=== PATIENT | female | born 1955 | race Hispanic/Latino ===

== ENCOUNTER 2017-02-10 07:10 | Outpatient (CLI) | payer BC ==
--- NOTE | 2017-02-10 10:56 | Mammography Report ---
BILATERAL DIGITAL SCREENING MAMMOGRAM with CAD: 02/10/17 07:10:00 CLINICAL: Routine screening. COMPARISON: 04/09/12 FINDINGS: There are bilateral scattered areas of fibroglandular density.No mass, architectural distortion or suspicious calcifications. IMPRESSION: No mammographic evidence of malignancy. BI-RADS CATEGORY: 1 -- Negative RECOMMENDATION: Routine mammographic screening in one year. COMMENT: Patient follow-up letters are generated by our [employer] application.
== END 2017-02-10 07:11 | disposition home or self-care (01) ==
LOC: MAMMO 07:10
PROVIDERS: ATTEND Internal Medicine
DX: Z12.31 Encounter for screening mammogram for malignant neoplasm of breast (principal)
CPT/HCPCS: 77067; G0202

== ENCOUNTER 2017-08-11 16:22 | Emergency (ER) | payer BC, OTHER ==
[2017-08-11 18:46] LABS: Basophils # (Auto) 0.1 K/mm3 (0.0-0.1); Basophils % (Auto) 1.4 % (0.0-1.8); Eosinophils # (Auto) 0.2 K/mm3 (0.0-0.4); Eosinophils % (Auto) 4.5 % (0.0-4.3); Hematocrit 28.6 % (30.3-42.9); Hemoglobin 8.8 gm/dl (10.1-14.3); Mean Corpuscular HGB Conc 31 % (30-34); Mean Corpuscular Volume 73 fl (79-97); Monocytes # (Auto) 0.4 K/mm3 (0.0-0.8); Platelet Count 242 K/mm3 (140-440); Red Blood Count 3.95 M/mm3 (3.65-5.03); Red Cell Distribution Width 17.5 % (13.2-15.2)
[2017-08-11 18:58] LABS: BUN/Creatinine Ratio 23; Blood Urea Nitrogen 14 mg/dL (7-17); Calcium 8.6 mg/dL (8.4-10.2); Hemolysis Index 2
[2017-08-11 19:18] LABS: Mean Corpuscular Hemoglobin 22 pg (28-32)
--- NOTE | 2017-08-11 20:29 | XRay Report ---
FINAL REPORT EXAM: XR CHEST ROUTINE 2V HISTORY: Shortness of breath TECHNIQUE: Two view chest PA and lateral PRIORS: None. FINDINGS: Cardiac and mediastinal contours are unremarkable. No focal pulmonary infiltrate is identified. No pleural fluid collection seen. Pulmonary vasculature is unremarkable. Noted is a spinal fusion jorje lower thoracic spine IMPRESSION: No acute abnormality identified in the chest
[2017-08-11] MEDS ORDERED: DUONEB *Not for PRN Use IH ONE (22:54)
--- NOTE | 2017-08-11 23:48 | Emergency Department Report ---
HPI - General Chief Complaint: Weakness Time Seen by Provider: 08/11/17 22:41 - HPI HPI: 62-year-old female who presents to the emergency department with a complaint of suspicion of anemia. She has some intermittent feelings of generalized weakness and shortness of breath and says that when this occurs it is usually from anemia. The patient denies any GI bleed or vaginal bleeding but says that she has had workups in the past and they have been unable to find the source of bleeding. She is scheduled for a pill endoscopy on the of this month. She used to be on iron for this iron deficiency anemia that says "it does not work." She denies any fever, chest pain, nausea, vomiting but does admit to a mixed dry and productive cough. She says that she had 2 different transfusions last year through the [place] [facility]. She has a previous history of breast cancer with a left mastectomy, asthma, previous trigeminal neuralgia. She used to see Dr. Montague for primary care but now goes to [facility]. ED Past Medical Hx - Past Medical History Previous Medical History?: Yes Hx Congestive Heart Failure: No Hx Diabetes: No Hx of Cancer: Yes (PARTIAL LEFT BREAST MASTECTOMY) Hx Asthma: Yes Hx COPD: No Additional medical history: "electric shick running through nerve." ANEMIA, TRIGEMINAL NEURALGIA - Surgical History Past Surgical History?: Yes Hx Breast Surgery: Yes (LEFT BREAST PARTIAL TISSUE REMOVAL) Additional Surgical History: SPINAL FUSION, URSZULA LEG VEIN STRIPPING, HYSTERECTOMY - Social History Smoking Status: Never Smoker Substance Use Type: Alcohol, Prescribed - Medications Home Medications: Home Medications Medication Instructions Recorded Confirmed Last Taken Type Compazine 1 tab PO Q4H PRN 05/18/15 05/18/15 Unknown History Omeprazole [PriLOSEC] 40 mg PO QDAY #30 cap 05/18/15 Unknown Rx Prednisone 1 tab PO DAILY PRN 05/18/15 05/18/15 Unknown History Prochlorperazine [Compazine] 1 tab PO BID 05/18/15 05/18/15 Unknown History Ventolin HFA 2 puff PO BID PRN 05/18/15 05/18/15 Unknown History Zolpidem [Ambien] 10 mg PO QHS 05/18/15 05/18/15 Unknown History ED Review of Systems ROS: Stated complaint: ANEMIC Other details as noted in HPI Comment: All other systems reviewed and negative Constitutional: weakness (intermittent). denies: chills, fever Eyes: denies: eye pain, eye discharge, vision change ENT: denies: ear pain, throat pain Respiratory: cough, shortness of breath (intermittent) Cardiovascular: denies: chest pain, palpitations Gastrointestinal: denies: abdominal pain, nausea, diarrhea Genitourinary: denies: urgency, dysuria, discharge Musculoskeletal: denies: back pain, joint swelling, arthralgia Skin: denies: rash, lesions Neurological: denies: headache, numbness, paresthesias Physical Exam - Physical Exam Vital Signs: Vital Signs 08/11/17 08/11/17 17:01 23:27 Temperature 98 F Pulse Rate 89 Pulse Rate [ 70 Anterior Bilateral Throughout] Respiratory 20 Rate Respiratory 17 Rate [Anterior Bilateral Throughout] Blood Pressure 107/71 O2 Sat by Pulse 99 Oximetry ED Course Vital Signs 08/11/17 08/11/17 17:01 23:27 Temperature 98 F Pulse Rate 89 Pulse Rate [ 70 Anterior Bilateral Throughout] Respiratory 20 Rate Respiratory 17 Rate [Anterior Bilateral Throughout] Blood Pressure 107/71 O2 Sat by Pulse 99 Oximetry - Consultations Consultation #1: I spoke with Dr. Scott of the [facility] who says that the patient previously had a hemoglobin of 10.5, 2 weeks ago, and therefore it has dropped almost 2 g. She recommends that the patient receive 1 unit of packed red blood cells and is okay with discharge after that. She will be set up to receive a phone call from [facility] for follow-up with her primary care physician in the next 1-2 days. 08/12/17 01:49 ED Medical Decision Making - Lab Data Result diagrams: 08/11/17 18:12 08/11/17 18:12 - EKG Data -: EKG Interpreted by Me EKG shows normal: sinus rhythm, axis, intervals, QRS complexes, ST-T waves Rate: normal - EKG Data When compared to previous EKG there are: previous EKG unavailable Interpretation: normal EKG Critical care attestation.: If time is entered above; I have spent that time in minutes in the direct care of this critically ill patient, excluding procedure time. ED Disposition Clinical Impression: Symptomatic anemia Disposition: - TO HOME OR SELFCARE Is pt being admited?: No Condition: Stable Instructions: Iron Deficiency Anemia (ED), Anemia (ED) Additional Instructions: You will be receiving a call sometime tomorrow, Thursday, by [facility] for close follow-up with your primary care physician. 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 Return to the emergency Department with any worsening of your symptoms or any acute distress. Referrals: PCP, Your [Other] - [facility] Time of Disposition: 01:48
[2017-08-12] MEDS ORDERED: NACL 0.9% 500 ML 500 ML IV ONE (00:59)
[2017-08-12 05:11] VITALS: BP 123/81
== END 2017-08-12 05:33 | disposition home or self-care (01) ==
LOC: ED 16:22
DX: D64.9 Anemia, unspecified (principal); J45.909 Unspecified asthma, uncomplicated; Z90.710 Acquired absence of both cervix and uterus
CPT/HCPCS: 36415; 71046; 80048; 84484; 85025; 86850; 86900; 86901; 86920; 93005; 93010; 94640; 99284; J7040; P9016

== ENCOUNTER 2018-04-04 09:49 | Emergency (ER) | payer OTHER ==
--- NOTE | 2018-04-04 11:34 | XRay Report ---
FINAL REPORT EXAM: XR CHEST ROUTINE 2V HISTORY: chest pain TECHNIQUE: Frontal and lateral views of the chest. PRIORS: Chest x-ray August 11, 2017. FINDINGS: Cardiac silhouette is within normal limits and stable. Aortic calcifications. There is no effusion. There is no pneumothorax. There is no consolidation. Lungs appear hyperinflated and may be related to reactive airway disease or COPD. There are no suspicious osseous lesions. Postsurgical changes within the spine. Degenerative changes in the spine. Retrocardiac opacity and lucency suggest hiatal hernia. Similar to prior. IMPRESSION: COPD. Hiatal hernia. Similar to prior. Otherwise, no acute pulmonary findings.
[2018-04-04 12:01] LABS: Basophils # (Auto) 0.1 K/mm3 (0.0-0.1); Basophils % (Auto) 1.4 % (0.0-1.8); Eosinophils # (Auto) 0.1 K/mm3 (0.0-0.4); Eosinophils % (Auto) 1.8 % (0.0-4.3); Hemoglobin 8.5 gm/dl (10.1-14.3); Lymphocytes # (Auto) 0.7 K/mm3 (1.2-5.4); Lymphocytes % (Auto) 15.7 % (13.4-35.0); Mean Corpuscular HGB Conc 30 % (30-34); Monocytes # (Auto) 0.3 K/mm3 (0.0-0.8); Monocytes % (Auto) 6.7 % (0.0-7.3); Platelet Count 256 K/mm3 (140-440); Red Blood Count 4.11 M/mm3 (3.65-5.03)
[2018-04-04 12:05] LABS: Mean Corpuscular Hemoglobin 21 pg (28-32); Mean Corpuscular Volume 68 fl (79-97); Red Cell Distribution Width 20.9 % (13.2-15.2)
[2018-04-04 12:12] LABS: INR 0.98 (0.87-1.13)
[2018-04-04 12:13] LABS: Partial Thromboplastin Time 26.9 Sec. (24.2-36.6)
[2018-04-04 12:24] LABS: BUN/Creatinine Ratio 17; Blood Urea Nitrogen 10 mg/dL (7-17); Calcium 8.8 mg/dL (8.4-10.2); Hemolysis Index 1
[2018-04-04 13:53] VITALS: BP 147/82
--- NOTE | 2018-04-04 14:04 | Emergency Department Report ---
ED Shortness of Breath HPI - General Chief Complaint: Weakness Stated Complaint: ANIMIC Time Seen by Provider: 04/04/18 10:40 Source: patient Mode of arrival: Ambulatory Limitations: No Limitations - History of Present Illness Initial Comments: Patient is a 62-year-old female who is presenting with shortness of breath. Patient states she has a long-standing history of anemia for the last 6 years intermittent GI bleeds. Patient states that she's had multiple GI studies they have never some found a source of her bleeding. Patient states that she was called by [facility] to come to the emergency department emergently because of a low hemoglobin from 2 days ago. The patient states she has some shortness of breath and intermittent chest discomfort. Patient states chest discomfort is worse with exertion. Patient states she was called because of a hemoglobin of 8.8. Patient denies any nausea vomiting cough at this time. - Related Data Home Medications Medication Instructions Recorded Confirmed Last Taken Compazine 1 tab PO Q4H PRN 05/18/15 05/18/15 Unknown Prednisone 1 tab PO DAILY PRN 05/18/15 05/18/15 Unknown Prochlorperazine [Compazine] 1 tab PO BID 05/18/15 05/18/15 Unknown Ventolin HFA 2 puff PO BID PRN 05/18/15 05/18/15 Unknown Zolpidem [Ambien] 10 mg PO QHS 05/18/15 05/18/15 Unknown Previous Rx's Medication Instructions Recorded Last Taken Type Omeprazole [PriLOSEC] 40 mg PO QDAY #30 cap 05/18/15 Unknown Rx Docusate Sodium [Colace] 100 mg PO BID #30 capsule 04/04/18 Unknown Rx Ferrous Sulfate [Feosol 325 MG tab] 325 mg PO TID #60 tablet 04/04/18 Unknown Rx Allergies Allergy/AdvReac Type Severity Reaction Status Date / Time No Known Allergies Allergy Unverified 05/17/15 09:13 ED Review of Systems ROS: Stated complaint: ANIMIC Other details as noted in HPI Comment: All other systems reviewed and negative ED Past Medical Hx - Past Medical History Previous Medical History?: Yes Hx Congestive Heart Failure: No Hx Diabetes: No Hx Asthma: Yes Hx COPD: No Additional medical history: "electric shock running through nerve." ANEMIA, TR IGEMINAL NEURALGIA - Surgical History Past Surgical History?: Yes Hx Breast Surgery: Yes (LEFT BREAST PARTIAL TISSUE REMOVAL) Additional Surgical History: SPINAL FUSION, URSZULA LEG VEIN STRIPPING, HYSTERECTOMY - Social History Smoking Status: Never Smoker Substance Use Type: Alcohol - Medications Home Medications: Home Medications Medication Instructions Recorded Confirmed Last Taken Type Compazine 1 tab PO Q4H PRN 05/18/15 05/18/15 Unknown History Omeprazole [PriLOSEC] 40 mg PO QDAY #30 cap 05/18/15 Unknown Rx Prednisone 1 tab PO DAILY PRN 05/18/15 05/18/15 Unknown History Prochlorperazine [Compazine] 1 tab PO BID 05/18/15 05/18/15 Unknown History Ventolin HFA 2 puff PO BID PRN 05/18/15 05/18/15 Unknown History Zolpidem [Ambien] 10 mg PO QHS 05/18/15 05/18/15 Unknown History Docusate Sodium [Colace] 100 mg PO BID #30 capsule 04/04/18 Unknown Rx Ferrous Sulfate [Feosol 325 MG tab] 325 mg PO TID #60 tablet 04/04/18 Unknown Rx ED Physical Exam - General Limitations: No Limitations General appearance: alert, in no apparent distress - Head Head exam: Present: atraumatic, normocephalic - Eye Eye exam: Present: normal appearance - ENT ENT exam: Present: mucous membranes moist - Neck Neck exam: Present: normal inspection - Respiratory Respiratory exam: Present: normal lung sounds bilaterally. Absent: respiratory distress, wheezes, rales, rhonchi, chest wall tenderness - Cardiovascular Cardiovascular Exam: Present: regular rate, normal rhythm. Absent: systolic murmur, diastolic murmur, rubs, gallop - GI/Abdominal GI/Abdominal exam: Present: soft, normal bowel sounds. Absent: distended, tende rness, guarding, rebound - Extremities Exam Extremities exam: Present: normal inspection - Back Exam Back exam: Present: normal inspection - Neurological Exam Neurological exam: Present: alert, oriented X3 - Psychiatric Psychiatric exam: Present: normal affect, normal mood - Skin Skin exam: Present: warm, dry, intact, normal color. Absent: rash ED Course Vital Signs 04/04/18 04/04/18 04/04/18 09:58 10:18 13:52 Temperature 97.8 F Pulse Rate 99 H 83 Respiratory 20 16 16 Rate Blood Pressure 152/86 Blood Pressure 147/82 [Left] O2 Sat by Pulse 98 97 Oximetry ED Medical Decision Making - Lab Data Result diagrams: 04/04/18 11:53 04/04/18 11:53 Lab Results 04/04/18 04/04/18 04/04/18 Range/Units 11:53 11:53 11:53 WBC 4.5 (4.5-11.0) K/mm3 RBC 4.11 (3.65-5.03) M/mm3 Hgb 8.5 L (10.1-14.3) gm/dl Hct 28.0 L (30.3-42.9) % MCV 68 L (79-97) fl MCH 21 L (28-32) pg MCHC 30 (30-34) % RDW 20.9 H (13.2-15.2) % Plt Count 256 (140-440) K/mm3 Lymph % (Auto) 15.7 (13.4-35.0) % Faulk % (Auto) 6.7 (0.0-7.3) % Eos % (Auto) 1.8 (0.0-4.3) % Baso % (Auto) 1.4 (0.0-1.8) % Lymph # 0.7 L (1.2-5.4) K/mm3 Faulk # 0.3 (0.0-0.8) K/mm3 Eos # 0.1 (0.0-0.4) K/mm3 Baso # 0.1 (0.0-0.1) K/mm3 Seg Neutrophils % 74.4 H (40.0-70.0) % Seg Neutrophils # 3.3 (1.8-7.7) K/mm3 PT 13.4 (12.2-14.9) Sec. INR 0.98 (0.87-1.13) APTT 26.9 (24.2-36.6) Sec. Sodium 143 (137-145) mmol/L Potassium 3.7 (3.6-5.0) mmol/L Chloride 105.3 (98-107) mmol/L Carbon Dioxide 24 (22-30) mmol/L Anion Gap 17 mmol/L BUN 10 (7-17) mg/dL Creatinine 0.6 L (0.7-1.2) mg/dL Estimated GFR > 60 ml/min BUN/Creatinine Ratio 17 % Glucose 92 (65-100) mg/dL Calcium 8.8 (8.4-10.2) mg/dL Troponin T < 0.010 (0.00-0.029) ng/mL NT-Pro-B Natriuret Pep 177.5 (0-900) pg/mL - EKG Data -: EKG Interpreted by [facility] - EKG Data 04/04/18 14:02 EKG shows sinus rhythm a rate of 80 with normal axis normal intervals no ST segment elevation or depressions. Time of interpretation is 1205 - Medical Decision Making I did speak with the on-call physician for [facility]. Patient's had a stress echo done approximately 2 months ago which was completely normal. Patient's ejection fraction was normal. Patient's [facility] physician states that an outpatient GI consult can be made. Patient will be started on high-dose iron and the patient will be discharged home at this time. Patient again had a stress test that was normal impression a 2 months ago she has normal coronary arteries per the physician at [facility]. Critical care attestation.: If time is entered above; I have spent that time in minutes in the direct care of this critically ill patient, excluding procedure time. ED Disposition Clinical Impression: Anemia Qualifiers: Anemia type: unspecified type Qualified Code(s): D64.9 - Anemia, unspecified Disposition: - TO HOME OR SELFCARE Is pt being admited?: No Does the pt Need Aspirin: No Condition: Stable Prescriptions: Docusate Sodium [Colace] 100 mg PO BID #30 capsule Ferrous Sulfate [Feosol 325 MG tab] 325 mg PO TID #60 tablet Referrals: PRIMARY CARE, [Primary Care Provider] - 3-5 Days Time of Disposition: 14:04
== END 2018-04-04 14:11 | disposition home or self-care (01) ==
LOC: ED 09:49
DX: D64.9 Anemia, unspecified (principal); J45.909 Unspecified asthma, uncomplicated; Z90.710 Acquired absence of both cervix and uterus
CPT/HCPCS: 36415; 71046; 80048; 83880; 84484; 85025; 85610; 85730; 93005; 93010